=== PATIENT | female | born 1970 | race Caucasian/White ===

== ENCOUNTER → 2020-04-05 13:35 | Outpatient (CLI) | payer OTHER, SELFPAY ==
--- NOTE | ~2020-04-05 | US_ITS ---
EXAMINATION: US pelvic complete w TV DATE: 04/05/2020 14:47 INDICATION: Postmenopausal bleeding TECHNIQUE: Multiple transabdominal and endovaginal sonographic images of the pelvis were obtained. COMPARISON: None. FINDINGS: The uterus measures 5.3 x 2.8 x 4.1 cm. The endometrial complex measures 5 mm in thickness. There ar e some refraction artifact at the margins of a couple 9 x 8 x 7 mm and 11 x 8 x 11 mm hypoechoic like ly uterine fibroids in the anterior uterine fundus. The right ovary measures 2.0 x 1.7 x 2.0 cm. The left is not definitively identified. Vascular flow is identified in the right ovary on color Doppler. There is no free fluid in the pelvis. IMPRESSION: 1. A couple approximately 1 cm hypoechoic nodules in the relatively atrophic uterus likely representi ng uterine fibroids. Reviewed, dictated and finalized at location B. IMPRESSION: 1. A couple approximately 1 cm hypoechoic nodules in the relatively atrophic ut erus likely representing uterine fibroids.
== END ==
PROVIDERS: Visit Provider Obstetrics & Gynecology
DX: N95.0 Postmenopausal bleeding (principal); R93.89 Abnormal findings on diagnostic imaging of other specified body structures
CPT/HCPCS: 76830; 76856

== ENCOUNTER 2021-02-14 11:06 | Outpatient (CLI) | payer OTHER, SELFPAY ==
--- NOTE | 2021-02-14 | ECHO_ITS ---
Patient Info Name: Casandra Simmons Age: 50 years : 1970 Gender: Female Ht: 65 in Wt: 175 lbs BSA: 1.93 m2 HR: 74 bpm Heart Rhythm: Sinus Rhythm Technical Quality: Good Exam Date: 02/14/2021 11:26 AM Exam Location: [facility] Patient Status: Outpatient Admit Date: 02/14/2021 Staff Ordering Physician: Miller, Yanelis Garcia MD Hog Driver: SILVIANO Attending Provider: Miller, Yanelis Garcia MD Referring Physician: Miller VILLEGAS; Exam Type: CA echo doppler color flow Study Info Indications R60.0 - Localized edema Complete two-dimensional, color flow and Doppler transthoracic echocardiogram is performed. Summary 1. Complete two-dimensional, color flow and Doppler transthoracic echocardiogram is performed. 2. Normal 2D and doppler echocardiogram. Left Ventricle Left ventricular chamber dimension is normal. Left ventricular systolic function is normal, estimated at 50-55%. Left ventricular septal wall motion is normal. The left ventricular diastolic function is normal. Right Ventricle Right ventricular chamber dimension is normal. Left Atria Left atrial chamber dimension is normal. Right Atria Right atrial chamber dimension is normal. Aortic Valve The aortic valve is normal. Pulmonic Valve The pulmonic valve is normal. Mitral Valve The mitral valve has normal leaflets. Tricuspid Valve The tricuspid valve leaflets are normal. Pericardium/Pleural The pericardium appears normal. Aorta The aortic root size at the sinus of Valsalva is normal. Left Ventricular Outflow Tract Name Value Normal LVOT 2D LVOT Diameter 2.0 cm LVOT Doppler LVOT Peak Gradient 5 mmHg LVOT Mean Gradient 3 mmHg LVOT VTI 23 cm LVOT VTI/AV VTI Ratio 0.5 LVOT Stroke Volume 73 ml LVOT CO 14.6 l/min LVOT CI 7.6 l/min/m2 Pulmonic Valve Name Value Normal PV Doppler PV Peak Gradient 5 mmHg Mitral Valve Name Value Normal MV Doppler MV Decel Kimball 451 cm/s2 MV PHT 54 ms MV Area (PHT) 4.1 cm2 4.0-5.0 MV Diastolic Function MV E Peak Velocity 84 cm/s MV A Peak Velocity 84 cm/s MV E/A 1.0 MV Decel Time
== END 2021-02-14 11:07 | disposition home or self-care (01) ==
LOC: ANHCARD 11:07
PROVIDERS: Visit Provider Family Medicine
DX: R60.0 Localized edema (principal)
CPT/HCPCS: 93306

== ENCOUNTER 2025-01-14 11:57 | Outpatient (CLI) | payer OTHER, SELFPAY ==
--- NOTE | ~2025-01-14 | MM_ITS ---
EXAMINATION: MM screening [facility] w [facility] HISTORY: Screening TECHNIQUE: Craniocaudal and mediolateral oblique 3-D tomosynthesis images were obtained and synthetic 2-D images were generated. CAD analysis was submitted and interpreted. COMPARISON: Comparison to multiple prior studies sequentially, with oldest reviewed study dated 11/26. BREAST PARENCHYMAL COMPOSITION: Not dense: There are scattered areas of fibroglandular density. FINDINGS: There is no evidence of suspicious mass, calcification, or architectural distortion to sugg est malignancy in either breast. There has been no suspicious interval change. IMPRESSION: 1. No mammographic evidence of malignancy. 2. Recommend routine screening mammography in one year. BI-RADS Category 1: Negative Reviewed, dictated and finalized at location B.
--- OUTSIDE RECORDS SUMMARY | 2025-01-14 12:04 | XMS_ITS | Encounter Summary ---
Author Organization [facility] Address [address] [place] [address] Care Team Providers Care Health And Safety Representative Name Role Phone Mia Ha MD, Marianne Primary Care Provider [phone] Encounter Details Date Type Department Care Team ([facility] Contact Info) Description 12/27/2021 Orders Only [facility] PATIENT ACCESS [address] [place] [address] Nonstaff, Provider Disorder of thyroid (Primary Dx) Social History Tobacco Use Types Packs/Day Years Used Date Smoking Tobacco: Never Assessed Comments Unknown Sex and Gender Information Value Date Recorded Sex Assigned at Not on file Legal Sex Female 4:52 PM CDT Gender Identity Not on file Sexual Orientation Not on file COVID-19 Exposure Response Date Recorded In the last 10 days, have yo u been in contact with someone who was confirmed or suspected to have Coronavirus/COVID-19? No / Unsure 12/28/2021 1:40 PM CDT documented as of this encounter Plan of Treatment Upcoming Encounters Date Type Department Care Team ([facility] Contact Info) Description 04/26/2025 7:40 AM CDT Office Visit [address] [place] [address] [address] [place] [address] Marianne Bellamy MD [address] [facility] 4 [place] [address] Scheduled Orders Name Type Priority Associated Diagnoses Orde r Schedule Check Order Lab Routine Disorder of thyroid 1 Occurrences starting 12/27/2021 until 12/27/2022 documented as of this encounter Results * Free T4 (12/27/2021 5:35 PM CDT) Free Thyroxine 1.39 0.93 - 1.70 ng/dL 12/27/2021 6:34 PM CDT [facility] Plasma BLOOD SPECIMEN / Unknown Venipuncture / -0.01 mL 12/27/2021 5:35 PM CDT 12/27/2021 6:02 PM CDT us Provider Nonstaff LAB BLOOD ORDERABLES Final Res ult Performing Organization Address City/[facility]/ZIP Co de Phone Number [address] [place] [address] [place] [address] [place] [facility] * TSH (12/27/2021 5:35 PM CDT) TSH 4.05 0.27 - 4.20 u[IU]/mL 12/27/2021 6:34 PM CDT [facility] Plasma BLOOD SPECIMEN / Unknown Venipuncture / -0.01 mL 12/27/2021 5:35 PM CDT 12/27/2021 6:02 PM CDT us Provider Nonstaff LAB BLOOD ORDERABLES Final Res ult Performing Organization Address City/[facility]/ZIP Co de Phone Number [address] [place] [address] [place] [address] [place] [facility] documented in this encounter Visit Diagnoses Diagnosis Disorder of thyroid- Primary Unspecified disorder of thyroid documented in this encounter Care Teams Health And Safety Representative Relationship Specialty Start Date End Date Marianne Bellamy MD PCP - General Family Medicine 11/26/22 documented as of this encounter
--- OUTSIDE RECORDS SUMMARY | 2025-01-14 12:04 | XMS_ITS | Referral Summary ---
[facility] Organization [facility] Address [address] [place] [address] Care Team Providers Care Executive Recruiter Name Role Phone Melina Weeks MD Primary Care Provider [phone] Dereck Weeks MD Unavailable Allergies Active Allergy Reactions Criticality Noted Date Comments Penicillins Medications metoprolol XL (TOPROL-XL) 50 mg 24 hr tablet Take 1 tablet by mouth daily. 02/26/[address] (PROTONIX) 40 mg EC tablet Take 1 tablet by mouth daily. 03/27/2017 Active losartan (COZAAR) 50 mg tablet Take 1 tablet by mouth daily. 03/25/2017 Active Active Problems Problem Noted Date Diagnosed Date Calculus of gallbladder with chronic cholecystitis without obstruction 08/13/2017 Essential hypertension, benign 04/03/2017 Social History Tobacco Use Types Packs/Day Years Used Date Smoking Tobacco: Former Cigarettes Q uit: 04/03/2012 Smokeless Tobacco: Current Alcohol Use Standard Drinks/Week Comments No 0 (1 standard drink = 0.6 oz pur e alcohol) Comments Unknown Sex and Gender Information Value Date Recorded Sex Assigned at Not on file Legal Sex Female 2:45 AM MORPHOLOGIST Gender Identity Not on file Sexual Orientation Not on file Last Filed Vital Signs Vital Sign Reading Time Taken Comments Blood Pressure 142/84 09/10/2017 11:28 AM MORPHOLOGIST Pulse 70 08/29/2017 9:11 AM MORPHOLOGIST Temperature - - Respiratory Rate - - Oxygen Saturation - - Inhaled Oxygen Concentration - - Weight 84.8 kg (187 lb) 09/10/2017 11:28 AM MORPHOLOGIST Height 162.6 cm (5' 4) 09/10/2017 11:28 AM MORPHOLOGIST Body Mass Index 32.1 09/10/2017 11:28 AM MORPHOLOGIST Plan of Treatment Not on file Insurance [facility] CHOICE PLUS [facility] HMO/PPO [place]: [place] [address] Care Teams Executive Recruiter Relationship Specialty Start Date End Date Melina Weeks MD [address] [facility] [address] PCP - General Internal Medicine 03/26/17 Dereck Weeks MD [address] [facility] [address] 03/26/17
--- OUTSIDE RECORDS SUMMARY | 2025-01-14 12:04 | XMS_ITS | Clinical Summary ---
Author Organization [facility] [employer] Address [address] [place] [address] Care Team Providers Care Nurse Receptionist Name Role Phone Unavailable Primary Care Provider Unavailabl e Source Comments [facility],non-owned Affiliates and Associated Physician Practices is amultiple site organization consisting of ambulatory clinics and hospital sitesin [place], [place] and [place]. This disclosure is being madepursuant to the Care Everywhere program and may not contain all information available regarding this patient. Last updated [facility] [employer] Allergies Active Allergy Reactions Criticality Noted Date Comments Penicillins 11/29/2009 Medications * Be aware that medications may not be up to date on this document. Alwaysverify current medications with the patient. escitalopram (LEXAPRO) 10 MG tablet Take 10 mg by mouth daily. 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 FILLER SHREDDER Gender Identity Not on file Sexual Orientation Not on file Last Filed Vital Signs Vital Sign Reading Time Taken Comments Blood Pressure 119/70 11/30/2009 4:08 PM CDT Pulse 103 11/30/2009 4:08 PM CDT Temperature 36.8 C (98.2 F) 11/30/2009 4:08 PM CDT Respiratory Rate 20 11/30/2009 4:08 PM CDT Oxygen Saturation 99% 11/30/2009 4:08 PM CDT Inhaled Oxygen Concentration - - Weight 81.2 kg (179 lb 0.2 oz) 11/29/2009 9:10 P M CDT Height 162.6 cm (5' 4) 11/29/2009 9:10 PM CDT Body Mass Index 30.73 11/29/2009 9:10 PM CDT Plan of Treatment Health Maintenance Due Date Last Done Comments COLOGUARD (AGES 45-75) - COL ON CA SCREENING 1970 COLON MONITORING 1970 COLONOSCOPY - COLON CA SCREENING 1970 CT COLONOGRAPHY - COLON CA SCREENING 1970 Colorectal Cancer Screening 1970 FIT - COLON CA SCREENING 1970 FLEX SIG - COLON CA SCREENING 1970 LIPID TESTING 1970 MAMMOGRAM 1970 HIV SCREENING 1985 HEPATITIS C SCREENING 05/03/1988 DTAP/TDAP/TD VACCINES (1 - Tdap) 1989 HEPATITIS B VACCINE (1 of 3 - 19+ 3-dose series) 1989 PNEUMOCOCCAL VACCINE 50+ (1 of 2 - PCV) 1989 ZOSTER VACCINE (1 of 2) 2020 COVID-19 VACCINE ( - 2023-2 5 season) 2024 DEPRESSION SCREENING 08/04/2024 INFLUENZA VACCINE (Season Ended) 2025 HIB VACCINE Aged Out No longer eligi ble based on patient's age to complete this topic HPV VACCINE Aged Out No longer eligi ble based on patient's age to complete this topic MENINGOCOCCAL (Group B) VACC INE SHARED DECISION-MAKING Aged Out No longer eligibl e based on patient's age to complete this topic MENINGOCOCCAL GROUPS A/C/Y/W VACCINE Aged Out No longer eligible b ased on patient's age to complete this topic Advance Directives * Full Code (Latest Code Status on File) Date Activated Date Inactivated Comments 11/29/2009 10:23 PM 12/01/2009 6:12 AM
--- OUTSIDE RECORDS SUMMARY | 2025-01-14 12:04 | XMS_ITS | Encounter Summary ---
Author Organization [facility] Address [address] [place] [address] Care Team Providers Care Industrial Gas Servicer Name Role Phone Mia Ha MD, [place] Primary Care Provider [phone] Reason for Visit * Reason Comments Medication Refill Encounter Details Date Type Department Care Team (Late Contact Info) Description 07/03/2023 [facility] [place] [address] [place] [address] 4 [place] [address] Danielle Fernandes, FUR MIXER [address] [place] [address] Mixed hyperlipidemia Social History Tobacco Use Types Packs/Day Years Used Date Smoking Tobacco: Former Cigarettes 1 36 1 - 05/2022 Smokeless Tobacco: Never Comments:Quit 40 yo and star [place]oria smoking 46 yo and quit 6 months ago . Used to smoke a pack a day Started smoking [address] a ppd Alcohol Use Standard Drinks/Week Comments Never 0 (1 standard drink = 0.6 oz pur e alcohol) Comments No Sex and Gender Information Value Date Recorded Sex Assigned at Not on file Legal Sex Female 4:52 PM CDT Gender Identity Not on file Sexual Orientation Not on file documented as of this encounter Plan of Treatment Upcoming Encounters Date Type Department Care Team ([facility] Contact Info) Description 04/26/2025 7:40 AM CDT Office Visit [address] [facility] Family Practice [place] [address] [facility] 4 [place] [address] Marianne Bellamy MD [address] 4 [place] [address] documented as of this encounter Visit Diagnoses Diagnosis Mixed hyperlipidemia documented in this encounter Care Teams Industrial Gas Servicer Relationship Specialty Start Date End Date Marianne Bellamy MD PCP - General Family Medicine 11/26/22 documented as of this encounter
--- OUTSIDE RECORDS SUMMARY | 2025-01-14 12:04 | XMS_ITS | Clinical Summary ---
Author Organization [facility] Address [address] [place] [address] Care Team Providers Care Coin Machine Operator Name Role Phone Melina Weeks MD Primary Care Provider [phone] Dereck Weeks MD Unavailable [phone] Allergies Active Allergy Reactions Criticality Noted Date [...] without obstruction 08/13/2017 Essential hypertension, benign 04/03/2017 Surgical History Surgery Date Site/Laterality Comments SECTION Caesarean Section x2 Medical History Medical History Date Comments Gastroesophageal reflux disease GERD Hx Other Medical Snoring. Depression Depression Family History Medical History Relation Name Comments Heart attack Brother 2 Myocardial Infa rction; Coronary artery disease Father Francisca nary Artery Bypass Graft; Stent Father Coronary Stent Placement; Stent Sister 2 Coronary Stent Placement; Relation Name Status Comments Brother 1 Alive Brother 2 Father Alive Sister 1 Alive Sister 2 Social History Tobacco Use Types Packs/Day Years Used Date Smoking Tobacco: Former Cigarettes Q uit: 04/03/2012 Smokeless Tobacco: Current Alcohol Use Standard Drinks/Week Comments No 0 (1 standard drink = 0.6 oz pur e alcohol) Comments Unknown Sex and Gender Information Value Date Recorded Sex Assigned at Not on file Legal 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 Gender Identity Not on file Sexual Orientation Not on file Obstetrics History Last Filed Vital Signs Vital Sign Reading Time Taken Comments Blood Pressure 142/84 09/10/2017 11:28 AM LICENSED SALES ASSISTANT Pulse 70 08/29/2017 9:11 AM LICENSED SALES ASSISTANT Temperature - - Respiratory Rate - - Oxygen Saturation - - Inhaled Oxygen Concentration - - Weight 84.8 kg (187 lb) 09/10/2017 11:28 AM LICENSED SALES ASSISTANT Height 162.6 cm (5' 4) 09/10/2017 11:28 AM LICENSED SALES ASSISTANT Body Mass Index 32.1 09/10/2017 11:28 AM LICENSED SALES ASSISTANT Plan of Treatment Not on file Insurance [facility] CHOICE PLUS [facility] HMO/PPO Address: [facility] [address] [place] [address] Care Teams Coin Machine Operator Relationship Specialty Start Date End Date Melina Weeks MD [address] [id number] PCP - General Internal Medicine 03/26/17 Dereck Weeks MD [address] [id number] 03/26/17
--- OUTSIDE RECORDS SUMMARY | 2025-01-14 12:04 | XMS_ITS | Clinical Summary ---
Author Organization [facility] Address [address] [place] [address] Care Team Providers Care Overlock Hemmer Name Role Phone Mia Ha MD, [place] Primary Care Provider [phone] Allergies Active Allergy Reactions Criticality Noted Date Comments Chlorthalidone Other (See Comments) 12/03/2022 Dizziness, blurred vision, headaches, nausea Metoprolol Other (See Comments) 11/26/2022 Mild leg swelling and hot sensation on the legs Penicillin Hives 11/29/2009 Swollen face Medications Unithroid 50 MCG tabletIndicatio ns:Hypothyroidi sm Take 1 tablet (50 mcg) by mouth in the morning. Managed by endocrinology. Indications: Underactive Thyroid. 3 Active amLODIPine (Norvasc) 2.5 MG tabletIndicatio ns:Essential hypertension, benign Take 1 tablet (2.5 mg) by mouth in the morning. Total 7.5 mg daily. 90 tablet 1 5 Active amLODIPine (Norvasc) 5 MG tabletIndicatio ns:Essential hypertension, benign Take 1 tablet (5 mg) by mouth in the morning. Total 7.5 mg daily. 90 tablet 1 5 Active losartan (Cozaar) 100 MG tabletIndicatio ns:Essential hypertension, benign Take 1 tablet (100 mg) by mouth in the morning. 90 tablet 1 5 Active rosuvastatin (Crestor) 10 MG tabletIndicatio ns:Hyperlipidem ia Take 1 tablet (10 mg) by mouth in the morning. Indications: High Amount of Fats in the Blood. 90 tablet 1 Active Active Problems Problem Noted Date Diagnosed Date Negative depression screening 11/01/2024 Family history of premature CAD 11/01/2024 Class 1 obesity due to exces s calories with serious comorbidity and body mass index (BMI) of 30.0 to 30.9 in adult 11/01/2024 FH: breast cancer 11/01/2024 Acquired hypothyroidism 11/01/2024 FH: ovarian cancer in first degree relative 10/04 Overview (11/01/2024): mom at 35 Ex-cigarette smoker 11/01/2024 Screening mammogram for breast cancer 11/01/2024 Hyperlipidemia 05/30/2020 04/18/2023 Essential hypertension, benign 04/03/2017 0 04/18/2023 Encounters Date Type Department Care Team Description 11/01/2024 7:40 AM CDT Office Visit [address] [place] [address] Marianne Bellamy MD Essential hypertension, benign (Primary Dx); Mixed hyperlipidemia; Family history of premature CAD; Screening mammogram for breast cancer; Ex-cigarette smoker; Screening for diabetes mellitus; Negative depression screening; Class 1 obesity due to excess calories with serious comorbidity and body mass index (BMI) of 30.0 to 30.9 in adult; Colon cancer screening; Encounter for screening for lung cancer; FH: breast cancer; FH: ovarian cancer in first degree relative from Last 3 Months Immunizations Immunization Administration Dates Next Due COVID-19 Pfizer mRNA, LNP-S, PF 30mcg/0.3mL Vaccine 12yrs+ 04/24/2021 Family History Medical History Relation Comments COPD Brother 1 Heart attack Brother 1 High blood pressure Brother 1 High cholesterol Brother 1 Heart attack Father High blood pressure Father High cholesterol Father Aneurysm Maternal Grandmother Breast cancer Mother Diabetes Mother Heart attack Mother High blood pressure Mother High cholesterol Mother Ovarian cancer Mother COPD Sister 1 Coronary art dis Sister 1 Heart attack Sister 1 High cholesterol Sister 1 Rheum arthritis Sister 1 High blood pressure Sister 2 High cholesterol Sister 2 Colon cancer Neg Hx Relation Status Comments Brother 1 Alive [place] in his 50s Brother 2 (Age 40) drug OD Daughter Alive Father (Age 70) MIcad had sten ts in his 70s Maternal Grandfather Maternal Grandmother (Age 80s) abdomina l aortic aneurym Mother (Age 61) breast with me ts. dx breast cancer 60 yo. from breast cancerMI in her 50sdx with ovarian cancer 35 yo Paternal Grandfather Paternal Grandmother Sister 1 Alive [place] 48 Sister 2 Alive Social History Tobacco Use Types Packs/Day Years Used Date Smoking Tobacco: Former Cigarettes 1 36 0 09/04/1987 - 09/04/2023 Smokeless Tobacco: Never Comments: 1ppd Alcohol Use Standard Drinks/Week Comments Never 0 (1 standard drink = 0.6 oz pur e alcohol) Overall Financial Resource Strain (CARDIA) Answe r Date Recorded How hard is it for you to pa y for the very basics like food, housing, medical care, and heating? Not very hard 10/21/2023 PHQ-2 Answer Date Recorded PHQ-9 Total Score 0 11/01/2024 Hunger Vital Sign Answer Date Recorded Within the past 12 months, y ou worried that your food would run out before you got the money to buy more. Never true 10/21/19 24 Within the past 12 months, t he food you bought just didn't last and you didn't have money to get more. Never true 10/21/2023 PRAPARE - Transportation Answer Date Re corded In the past 12 months, has l ack of transportation kept you from medical appointments or from getting medications? No 10/02 In the past 12 months, has l ack of transportation kept you from meetings, work, or from getting things needed for daily living? No 10/21/2023 Housing Stability Vital Sign Answer Refugio e Recorded In the last 12 months, was t here a time when you were not able to pay the mortgage or rent on time? No 10/21/2023 In the last 12 months, how many places have you lived? 1 10/21/2023 In the last 12 months, was t here a time when you did not have a steady place to sleep or slept in a senior care (including now)? No 10/21/2023 Comments No Sex and Gender Information Value Date Recorded Sex Assigned at Not on file Legal Sex Female 4:52 PM CDT Gender Identity Not on file Sexual Orientation Not on file Last Filed Vital Signs Vital Sign Reading Time Taken Comments Blood Pressure 120/85 11/01/2024 7:41 AM CDT Pulse 58 11/01/2024 7:41 AM CDT Temperature 36.5 C (97.7 F) 11/01/2024 7:41 AM CDT Respiratory Rate 16 11/01/2024 7:41 AM CDT Oxygen Saturation 98% 11/01/2024 7:41 AM CDT Inhaled Oxygen Concentration - - Weight 81.1 kg (178 lb 12.8 oz) 11/01/2024 7:41 AM CDT Height 162.6 cm (5' 4) 11/01/2024 7:41 AM CDT Body Mass Index 30.69 11/01/2024 7:41 AM CDT Plan of Treatment Upcoming Encounters Date Type Department Care Team (Late st Contact Info) Description 04/26/2025 7:40 AM CDT Office Visit [address] [place] [address] [place] [address], [place] [address] Marianne Bellamy MD [address] [place] [address], [place] [address] Health Maintenance Due Date Last Done Comments CT Colonography 1970 Colonoscopy 1970 Colorectal Cancer Screening 1970 FIT-DNA 1970 FIT 1970 FOBT 1970 Sigmoidoscopy 1970 DTaP/Tdap/Td Vaccines (1 - Tdap) 1989 Lung Cancer Screening 2020 Pneumococcal Vaccine: 50+ Years (1 of 1 - PCV) 2020 BREAST CANCER SCREENING ANNUAL 11/02/2024 11/03/2023 (Previously completed), 11/04/2022, 08/04/2022 CERVICAL CANCER SCREENING 11/02/20242023 (Previously completed), 11/04/2022 INFLUENZA VACCINE 04/04/2025 RSV 60+ (1 - 1-dose 75+ series) 2045 COVID-19 Vaccine Discontinued 04/24/2021 HEPATITIS B VACCINES Discontinued HIB VACCINES Aged Out No longer eligi ble based on patient's age to complete this topic HPV Vaccines Aged Out No longer eligi ble based on patient's age to complete this topic Hepatitis A Vaccines Aged Out No long er eligible based on patient's age to complete this topic IPV VACCINES Aged Out No longer eligi ble based on patient's age to complete this topic MMR Vaccines Discontinued Meningococcal B Vaccine Aged Out No l onger eligible based on patient's age to complete this topic Meningococcal Vaccine Aged Out No otis marcy eligible based on patient's age to complete this topic RSV < 20 Months Aged Out No longer el igible based on patient's age to complete this topic Rotavirus Vaccines Aged Out No longer eligible based on patient's age to complete this topic ZOSTER VACCINES Discontinued [place] [address] [place] [address] [place] [address] [place] [address] HMO/[place] [id number] [facility] HMO/POS/OPEN ACCESS [address] [place] [address] Care Teams Overlock Hemmer Relationship Specialty Start Date End Date Marianne Bellamy MD PCP - General Family Medicine 11/26/22
--- OUTSIDE RECORDS SUMMARY | 2025-01-14 12:04 | XMS_ITS | Clinical Summary ---
Author Organization [facility] Address [address] [place] [address] Phone Care Team Providers Care [employer]er Name Role Phone Marianne Bellamy MD Primary Care Provider [phone] Allergies Active Allergy Reactions Criticality Noted Date Comments Penicillin Rash Medium 12/05/2022 Medications losartan (COZAAR) 100 mg tablet Take 100 mg by mouth daily Active chlorthalidone (THALITONE) 25 mg tablet Take 25 mg by mouth daily Active rosuvastatin (CRESTOR) 10 mg tablet Take 10 mg by mouth daily Active levothyroxine (UNITHROID) 25 mcg tablet Take 30 mcg by mouth daily Active Social History Tobacco Use Types Packs/Day Years Used Date Smoking Tobacco: Every Day Cigarettes Smokeless Tobacco: Never Tobacco Cessation:Ready to Q uit: Not Asked; Counseling Given: Not Answered Alcohol Use Standard Drinks/Week Comments Never 0 (1 standard drink = 0.6 oz pur e alcohol) Comments No Sex and Gender Information Value Date Recorded Sex Assigned at Not on file Legal Sex Female 10:08 PM EDT Gender Identity Not on file Sexual Orientation Not on file Last Filed Vital Signs Vital Sign Reading Time Taken Comments Blood Pressure 105/60 12/06/2022 1:33 AM CDT Pulse 87 12/06/2022 1:33 AM CDT Temperature 36.7 C (98 F) 12/05/2022 9:16 PM CDT Respiratory Rate 17 12/06/2022 1:33 AM CDT Oxygen Saturation 100% 12/06/2022 1:33 AM CDT Inhaled Oxygen Concentration - - Weight 80.7 kg (178 lb) 12/05/2022 9:16 PM CDT Height 162.6 cm (5' 4) 12/05/2022 9:16 PM CDT Body Mass Index 30.55 12/05/2022 9:16 PM CDT Plan of Treatment Health Maintenance Due Date Last Done Comments Breast Cancer Screening - external PCP or OBGYN 1969 Colorectal Cancer Screening - external PCP / no colon specialist 1970 Well Visit 1973 BMI followup 1988 Depression Screening 1988 Hepatitis B Vaccination (1 of 3 - 19+ 3-dose series) 1 Cervical Cancer Screening - external PCP or OBGYN 12/1990 Tdap/Td Vaccination (1 - Tdap) 1991 Pneumococcal Vaccination (1 of 1 - PCV) 2020 Zoster (Shingrix) Vaccination (1 of 2) 2020 COVID-19 Vaccine (2 - season) 2024 Influenza Vaccination (Season Ended) [address] [place] [id number] Care 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
== END 2025-01-14 11:58 | disposition home or self-care (01) ==
LOC: CHSIMG 12:02
PROVIDERS: Visit Provider Obstetrics & Gynecology
DX: Z12.31 Encounter for screening mammogram for malignant neoplasm of breast (principal)
CPT/HCPCS: 77063; 77067